=== PATIENT | female | born 1980 | race Caucasian/White ===

== ENCOUNTER 2018-08-30 17:12 | Emergency (ER) | payer OTHER ==
--- NOTE | 2018-08-30 17:24 | Emergency Department Report ---
Chief Complaint: Puncture Wound Stated Complaint: PUNCTURE WOUND - HPI History of Present Illness: pt presents to the ED with c/o a puncture wound to the left foot that occurred yesterday she states she stepped on a nail she has mild amount of pain she is unsure of her last tetanus immunization MSE screening note: Focused history and physical exam performed. Due to findings the following was ordered: xr left foot, tetanus immunization ED Disposition for MSE Condition: Stable
[2018-08-30] MEDS ORDERED: BOOSTRIX IM ONE ×2 (17:26→19:53)
--- NOTE | 2018-08-30 18:16 | XRay Report ---
PROCEDURE: XR FOOT 2V LT TECHNIQUE: 2 views HISTORY: puncture wound to the left foot COMPARISONS: None FINDINGS: No fracture or dislocation. The joint spaces are maintained. No radiopaque foreign bodies or soft tissue gas. IMPRESSION: No acute abnormality identified. . This document is electronically signed by Ethan Gaming MD., August 30 2018 06:14:58 PM ET
--- NOTE | 2018-08-30 22:07 | Emergency Department Report ---
ED General Adult HPI - General Chief complaint: Puncture Wound Stated complaint: PUNCTURE WOUND Time Seen by Provider: 08/30/18 21:53 Source: patient Mode of arrival: Ambulatory Limitations: No Limitations - History of Present Illness Initial comments: On 38-year-old female doesn't emerge department complaining of pain to the left foot. She stepped on a nail on yesterday while wearing some thin shoes. She went to a clinic earlier today and he prescribed her some antibodies, however, they did not have any tetanus shots. She presented to the ER to receive her tetanus shot and have her foot reevaluated. She reports no swelling or drainage. -: days(s) (1) Radiation: non-radiation Severity scale (0 -10): 3 Consistency: constant Improves with: none Worsens with: none Associated Symptoms: denies: chest pain, cough, diaphoresis, loss of appetite, malaise, nausea/vomiting, syncope, weakness - Related Data Previous Rx's Medication Instructions Recorded Last Taken Type Ciprofloxacin HCl [Ciprofloxacin 500 mg PO Q12H #20 tab 08/30/18 Unknown Rx TAB] Allergies Allergy/AdvReac Type Severity Reaction Status Date / Time No Known Allergies Allergy Unverified 08/30/18 17:13 ED Review of Systems ROS: Stated complaint: PUNCTURE WOUND Other details as noted in HPI Constitutional: denies: chills, fever Eyes: denies: eye pain, eye discharge, vision change ENT: denies: ear pain, throat pain Respiratory: denies: cough, shortness of breath, wheezing Cardiovascular: denies: chest pain, palpitations Endocrine: no symptoms reported. denies: excessive sweating, flushing Gastrointestinal: denies: abdominal pain, nausea, diarrhea Genitourinary: denies: urgency, dysuria, discharge Musculoskeletal: denies: back pain, joint swelling, arthralgia Skin: denies: rash, lesions Neurological: denies: headache, weakness, paresthesias Psychiatric: denies: anxiety, depression Hematological/Lymphatic: denies: easy bleeding, easy bruising ED Past Medical Hx - Social History Smoking Status: Never Smoker Substance Use Type: None - Medications Home Medications: Home Medications Medication Instructions Recorded Confirmed Last Taken Type Ciprofloxacin HCl [Ciprofloxacin 500 mg PO Q12H #20 tab 08/30/18 Unknown Rx TAB] ED Physical Exam - General Limitations: No Limitations General appearance: alert, in no apparent distress - Head Head exam: Present: atraumatic, normocephalic - Eye Eye exam: Present: normal appearance, PERRL, EOMI Pupils: Present: normal accommodation - ENT ENT exam: Present: normal exam, mucous membranes moist - Neck Neck exam: Present: normal inspection, full ROM. Absent: tenderness - Respiratory Respiratory exam: Present: normal lung sounds bilaterally. Absent: respiratory distress - Cardiovascular Cardiovascular Exam: Present: regular rate, normal rhythm. Absent: systolic murmur, diastolic murmur, rubs, gallop - GI/Abdominal GI/Abdominal exam: Present: soft, normal bowel sounds - Extremities Exam Extremities exam: Present: normal inspection - Back Exam Back exam: Present: normal inspection - Neurological Exam Neurological exam: Present: alert, oriented X3 - Psychiatric Psychiatric exam: Present: normal affect, normal mood - Skin Skin exam: Present: warm, dry, intact, normal color, other (small puncture wound to the occipital left foot. No saline is no evidence of any retained foreign body. No discharge, no lymphangitis.). Absent: rash ED Course Vital Signs 08/30/18 17:22 Temperature 97.5 F L Pulse Rate 61 Respiratory 18 Rate Blood Pressure 122/67 O2 Sat by Pulse 100 Oximetry Critical care attestation.: If time is entered above; I have spent that time in minutes in the direct care of this critically ill patient, excluding procedure time. ED Disposition Clinical Impression: Puncture wound of foot, left Disposition: DC-01 TO HOME OR SELFCARE Is pt being admited?: No Does the pt Need Aspirin: No Condition: Stable Instructions: Puncture Wound (ED) Prescriptions: Ciprofloxacin HCl [Ciprofloxacin TAB] 500 mg PO Q12H #20 tab Referrals: CHRISTINE SWAIN MD [Primary Care Provider] - 3-5 Days
[2018-08-30 22:16] VITALS: BP 120/64
== END 2018-08-30 22:18 | disposition home or self-care (01) ==
LOC: ED 17:12
DX: S91.332A Puncture wound without foreign body, left foot, initial encounter (principal); W45.0XXA Nail entering through skin, initial encounter; Y93.89 Activity, other specified; Y92.89 Other specified places as the place of occurrence of the external cause; Y99.8 Other external cause status
CPT/HCPCS: 90471; 90715; 99283